=== PATIENT | female | born 1995 | race Caucasian/White ===

== ENCOUNTER 2017-01-21 08:16 | Emergency (ER) | payer SELFPAY ==
[2017-01-21 08:34] VITALS: BP 141/86; PULSE 93; RESP 18; TEMP 98.3; O2SAT 100
[2017-01-21] MEDS ORDERED: Sodium Chloride 0.9% 1,000 ML IV STA (08:39)
--- NOTE | 2017-01-21 08:45 | ED PDOC ---
HPI: Abdomen Time Seen by Provider: 01/21/17 08:24 Chief Complaint (Nursing): Rib Injury Chief Complaint (Provider): abdominal pain History Per: Patient History/Exam Limitations: no limitations Onset/Duration Of Symptoms: Days (x 1) Outside of [place] travel?: No Location Of Pain/Discomfort: LUQ, Other (left flank ) Associated Symptoms: Nausea, Vomiting. denies: Diarrhea Additional Complaint(s): Cony Montes is a 21 year old female, with a previous medical history of asthma , who presents to the ED with complaints of left upper quadrant pain and left flank pain ongoing for 1 day with associated symptoms of nausea and vomiting. Patient denies any diarrhea, fever or urinary symptoms. PMD: none provided Abnormal Vaginal Bleeding: No Past Medical History Reviewed: Historical Data, Nursing Documentation, Vital Signs Vital Signs: Last Vital Signs Temp 98.3 F 01/21/17 08:30 Pulse 93 H 01/21/17 08:30 Resp 18 01/21/17 08:30 BP 141/86 01/21/17 08:30 Pulse Ox 100 01/21/17 10:53 - Medical History PMH: Asthma, Bronchitis, Migraine - Family History Family History: States: Unknown Family Hx - Home Medications Home Medications: Ambulatory Orders Medication Instructions Recorded Q-Brigida 1 puff INH PRN PRN 01/16/15 Nitrofurantoin Macrocrystals 100 mg PO BID #14 cap 07/23/15 [Macrobid] Famotidine [Pepcid] 20 mg PO Q12 #20 tab 01/21/17 Ondansetron [Zofran] 4 mg PO Q8H #10 tab 01/21/17 - Allergies Allergies/Adverse Reactions: Allergies Allergy/AdvReac Type Severity Reaction Status Date / Time No Known Allergies Allergy Verified 08/08/15 15:32 Review of Systems ROS Statement: Except As Marked, All Systems Reviewed And Found Negative Constitutional: Negative for: Fever, Chills Gastrointestinal: Positive for: Nausea, Vomiting, Abdominal Pain (LUQ). Negative for: Diarrhea Musculoskeletal: Positive for: Back Pain (left flank pain ) Physical Exam - Reviewed Nursing Documentation Reviewed: Yes Vital Signs Reviewed: Yes - Physical Exam Appears: Positive for: Well, Non-toxic, No Acute Distress Cardiovascular/Chest: Positive for: Regular Rate, Rhythm Respiratory: Positive for: CNT, Normal Breath Sounds Gastrointestinal/Abdominal: Positive for: Bowel Sounds, Soft, Tenderness (LUQ). Negative for: Mass, Distended, Guarding, Rebound Back: Positive for: Normal Inspection. Negative for: L CVA Tenderness Neurologic/Psych: Positive for: Alert, Oriented - Laboratory Results Result Diagrams: 01/21/17 08:50 01/21/17 08:50 - ECG O2 Sat by Pulse Oximetry: 100 (RA) Pulse Ox Interpretation: Normal Medical Decision Making Medical Decision Making: Initial Impression: abdominal pain Initial Plan: * CT abd & pelvis w/o PO or IV contrast * labs * urine dipstick * urine * pepcid * zofran * IV NS 1,000 ml at 100 ml/hr * reevaluation 10:22 CT abd& pelvis FINDINGS: LOWER THORAX: Small hiatal hernia. Minor atelectasis right lung base. LIVER: Normal size Liver exhibits measuring approximately 15.5 cm in CC dimension. No obvious hepatic mass collection or calcification. GALLBLADDER AND BILE DUCTS: Gallbladder is physiologically distended. No evidence of intraluminal gallbladder calculi. PANCREAS: Visualized portions of the pancreas grossly unremarkable without mass collection calcification or significant ductal dilatation. SPLEEN: Spleen exhibits normal size and attenuation pattern. ADRENALS: No adrenal lesions. KIDNEYS AND URETERS: Kidneys exhibit symmetric size. No evidence of nephrolithiasis or hydronephrosis. BLADDER: Urinary bladder appears incompletely distended which may account for slight thick-walled appearance. Possibility of a cystitis should be excluded. REPRODUCTIVE: Uterus appears grossly unremarkable. Questionable approximately 1.5 cm right adnexal cyst lymph APPENDIX: Was felt to represent a normal appendix of best seen on coronal series 601 image number [id number]. No periappendiceal inflammatory changes. BOWEL: Evaluation of the bowel is limited due to the lack of oral contrast material. Stomach is incompletely distended which presumably accounts slight thick-walled appearance. Visualized loops of small bowel exhibit normal contour and caliber. No evidence of acute mechanical small bowel obstruction. Stool and air seen throughout colon no evidence of obstruction. . PERITONEUM: Unremarkable. No fluid collection. No free air. LYMPH NODES: Unremarkable. No enlarged lymph nodes. VASCULATURE: Unremarkable. No aortic aneurysm. BONES: No fracture or destructive lesion. OTHER FINDINGS: None. IMPRESSION: No acute intra abdominal pathology. No evidence of nephrolithiasis or hydronephrosis. No evidence acute appendicitis. Questionable approximately 1.5 cm right adnexal cyst area. Scribe Attestation: Documented by Loretta Echavarria, acting as a scribe for Paul Irby MD. Provider Scribe Attestation: All medical record entries made by the Scribe were at my direction and personally dictated by me. I have reviewed the chart and agree that the record accurately reflects my personal performance of the history, physical exam, medical decision making, and the department course for this patient. I have also personally directed, reviewed, and agree with the discharge instructions and disposition. Disposition - Clinical Impression Clinical Impression: Gastritis - Patient ED Disposition Is Patient to be Admitted: No Counseled Patient/Family Regarding: Studies Performed, Diagnosis, Need For Followup, Rx Given - Disposition Referrals: FAMILY PROVIDER,NO [Family Provider] - [facility] [Outside] Disposition: Routine/Home Disposition Time: 10:59 Condition: FAIR Prescriptions: Famotidine [Pepcid] 20 mg PO Q12 #20 tab Ondansetron [Zofran] 4 mg PO Q8H #10 tab Instructions: Gastritis (ED)
[2017-01-21 09:07] LABS: BASO # 0.1 K/uL (0.0-0.2); BASO % 0.6 % (0.0-2.0); EOS % 0.3 % (0.0-4.0); HEMATOCRIT 35.9 % (34.0-47.0); LYMPH % 24.9 % (20.0-40.0); MEAN CORPUSCULAR HEMOGLOBIN 29.7 pg (27.0-31.0); MEAN CORPUSCULAR HGB CONC 33.8 g/dL (33.0-37.0); MEAN PLATELET VOLUME 6.7 fl (7.2-11.7); MONO # 0.9 K/uL (0.0-0.8); MONO % 7.5 % (0.0-10.0); NEUT % 66.7 % (50.0-75.0); RED CELL DISTRIBUTION WIDTH 12.6 % (11.5-14.5)
[2017-01-21 09:26] LABS: ALB/GLOB RATIO 1.8 (1.0-2.1); ALKALINE PHOSPHATASE 76 U/L (38-126); ALT/SGPT 26 U/L (9-52); AST/SGOT 30 U/L (14-36); BILIRUBIN,TOTAL 0.4 mg/dl (0.2-1.3); BLOOD UREA NITROGEN 9 mg/dl (7-17); CALCIUM 9.6 mg/dL (8.4-10.2); CARBON DIOXIDE 26 mmol/L (22-30); CHLORIDE 103 mmol/L (98-107); GFR AFRICAN-AMERICAN > 60; GLUCOSE,RANDOM 82 mg/dL (65-105); POTASSIUM 4.2 MMOL/L (3.6-5.0); SODIUM 139 mmol/l (132-148); TOTAL PROTEIN 7.4 G/DL (6.3-8.2)
--- NOTE | 2017-01-21 10:31 | CT ---
PROCEDURE: CT Abdomen and pelvis dated 01/21/2017 HISTORY: r/o kidney stone COMPARISON: None. TECHNIQUE: Contiguous axial images of the abdomen and pelvis. Oral contrast was administered. No IV contrast given. Coronal and Sagittal reformats generated. Radiation dose: Total exam DLP = 221.71 mGy-cm. This CT exam was performed using one or more of the following dose reduction techniques: Automated exposure control, adjustment of the mA and/or kV according to patient size, and/or use of iterative reconstruction technique. FINDINGS: LOWER THORAX: Small hiatal hernia. Minor atelectasis right lung base. LIVER: Normal size Liver exhibits measuring approximately 15.5 cm in CC dimension. No obvious hepatic mass collection or calcification. GALLBLADDER AND BILE DUCTS: Gallbladder is physiologically distended. No evidence of intraluminal gallbladder calculi. PANCREAS: Visualized portions of the pancreas grossly unremarkable without mass collection calcification or significant ductal dilatation. SPLEEN: Spleen exhibits normal size and attenuation pattern. ADRENALS: No adrenal lesions. KIDNEYS AND URETERS: Kidneys exhibit symmetric size. No evidence of nephrolithiasis or hydronephrosis. BLADDER: Urinary bladder appears incompletely distended which may account for slight thick-walled appearance. Possibility of a cystitis should be excluded. REPRODUCTIVE: Uterus appears grossly unremarkable. Questionable approximately 1.5 cm right adnexal cyst lymph APPENDIX: Was felt to represent a normal appendix of best seen on coronal series 601 image number [id number]. No periappendiceal inflammatory changes. BOWEL: Evaluation of the bowel is limited due to the lack of oral contrast material. Stomach is incompletely distended which presumably accounts slight thick-walled appearance. Visualized loops of small bowel exhibit normal contour and caliber. No evidence of acute mechanical small bowel obstruction. Stool and air seen throughout colon no evidence of obstruction. . PERITONEUM: Unremarkable. No fluid collection. No free air. LYMPH NODES: Unremarkable. No enlarged lymph nodes. VASCULATURE: Unremarkable. No aortic aneurysm. BONES: No fracture or destructive lesion. OTHER FINDINGS: None. IMPRESSION: No acute intra abdominal pathology. No evidence of nephrolithiasis or hydronephrosis. No evidence acute appendicitis. Questionable approximately 1.5 cm right adnexal cyst area.
== END 2017-01-21 11:26 | disposition home or self-care (01) ==
LOC: H.ER 08:16 → SUPCPDRO 08:16 → H.ER 11:26
DX: K29.70 Gastritis, unspecified, without bleeding (principal); J45.909 Unspecified asthma, uncomplicated; R11.2 Nausea with vomiting, unspecified
CPT/HCPCS: 74176; 80053; 81025; 85025; 96374; 96375; 99285; J2405; J7040